=== PATIENT | male | born 1970 | race Caucasian/White ===

== ENCOUNTER 2019-03-21 21:26 | Observation (INO) ==
--- NOTE | 2019-03-21 21:41 | ERNOTE ---
<Nenita Payton - Last Filed: 03/21/19 21:52> Abdominal HPI - Narrative Date of Service: 03/21/19 - General Chief Complaint: Abdominal Pain Time Seen by Provider: 03/21/19 21:40 Source: patient Exam Limitations: no limitations - Immun/Allergies/Home Medications Immunizatons: IMMUNIZATION HX Immunizations Up to Date Yes History of Influenza Vaccine No Hx Pneumococcal Vaccination No Allergies/Adverse Reactions: Allergies No Known Allergies Allergy (Verified 03/21/19 21:32) Home Medications: HOME MEDICATIONS Ondansetron [Zofran Odt] 8 mg PO TID PRN 06/17/14 [Last Taken Unknown] Erythromycin Base [Erythromycin] 250 mg PO TID 11/11/18 [Last Taken Unknown] Albuterol Sulfate [Proair Hfa] 1 - 2 puff INHALATION Q4H PRN #1 inhaler 12/06/18 [Last Taken Unknown] Omeprazole [Prilosec] 20 mg PO DAILY 03/21/19 [Last Taken Unknown] Lisinopril mg PO DAILY 03/22/19 [Last Taken Unknown] - Pain Score Pain Score #1 Pain Score: 8 Abdominal Pain Onset Location: RLQ, LLQ, suprapubic Pain Radiation: no radiation - History of Present Illness Narrative: The patient is a 49 year old male who presents for abdominal pain which has been present since yesterday night. There are associated symptoms of nausea. The patient reports diffuse low abdominal pain, 8/10. There are no alleviating factors. There are aggravating factors of activity. Previous treatments have included: Zofran with slight improvement. The past medical history includes: diverticulitis and gastroparesis. The social history is negative. The patient has had no ill contacts. Patient states symptoms are similar to diverticulitis flare in the past. Patient report normal bowel movement yesterday without changes to pain post defecation, denies blood in stool. Review of Systems - Review of Systems Constitutional: Present: fatigue. Absent: fever EYE: Present: no symptoms reported ENT: Present: no symptoms reported. Absent: ear pain, nasal drainage, sore throat Respiratory: Present: no symptoms reported. Absent: shortness of breath, cough Cardiology: Present: no symptoms reported. Absent: chest pain Gastrointestinal/Abdominal: Present: nausea, abdominal pain. Absent: vomiting, diarrhea Genitourinary: Present: frequency. Absent: dysuria, decreased urinary output Musculoskeletal: Present: no symptoms reported Skin: Present: no symptoms reported Neurological: Present: no symptoms reported All Other Systems: All systems neg except as marked Medical History (Updated 02/22/19 @ 09:36 by Carroll Key MD) Diverticulitis Gastroparesis Kidney stones history of back surgery Surgical History: Surgical History (Updated 07/30/18 @ 03:56 by Antionette Clark) History of repair of left rotator cuff (Acute) History of cholecystectomy Status post right foot surgery Social History: Preferred Language Kosovan Do you have any protestant or No cultural preference? Smoking Status Never smoker Alcohol Use none Drug Use none No Social History Section defined Physical Exam - Physical Exam General Appearance: Present: wd/wn, alert, moderate distress Head Exam: Present: normal inspection Eye Exam: Normal inspection: bilateral Neck: Present: normal inspection Respiratory: Present: no respiratory distress, normal breath sounds, no accessory muscle use, lungs clear Cardiovascular/Chest: Present: no murmur, tachycardia Gastrointestinal/Abdominal: Present: normal bowel sounds, soft, no organomegaly, tenderness - diffuse lower abdomen, distended - abdominal obesity, guarding - suprapubic. Absent: mass Neurological Exam: Present: alert, oriented, normal mood/affect Skin Exam: Present: normal color, warm/dry Progress - Vital Signs Patient's Vital Signs:: I have reviewed the patient's vital signs. Vital Signs: Vital Signs 03/21/19 21:29 Temperature 36.9 C Pulse Rate 107 H Respiratory Rate 18 Blood Pressure 140/92 H O2 Sat by Pulse Oximetry 95 - Progress/Reassessment Chief Complaint: Abdominal Pain - Transfer of Care Physician Sign Out: Nenita Payton Receiving Physician: Augustus Rodriguez Pending Results: CT/MRI results, Labs, X-ray results Expected Disposition: Discharge Departure Clinical Impression: Diverticulitis - Departure Disposition: Still a patient Condition: Fair <Augustus Rodriguez - Last Filed: 03/22/19 05:38> Abdominal HPI - Immun/Allergies/Home Medications Immunizatons: IMMUNIZATION HX Immunizations Up to Date Yes History of Influenza Vaccine No Hx Pneumococcal Vaccination No - History of Present Illness Timing: getting worse Quality: moderate, severe, cramping, sharpness Activities at Onset: none Modifying Factors - (Improves): Present: lying down Modifying Factors - (Worsens): Present: movement Medical History (Updated 03/21/19 @ 21:52 by RADHA Teague) Diverticulitis Gastroparesis Kidney stones history of back surgery Surgical History: Surgical History (Updated 07/30/18 @ 03:56 by Antionette Clark) History of repair of left rotator cuff (Acute) History of cholecystectomy Status post right foot surgery Family History: Family History (Updated 03/22/19 @ 04:35 by Sheron Mills RN) Other No pertinent family history Social History: Preferred Language Kosovan Do you have any protestant or No cultural preference? Smoking Status Never smoker Alcohol Use none Drug Use none No Social History Section defined Physical Exam - Physical Exam General Appearance: Present: wd/wn, alert, mild distress Respiratory: Present: no respiratory distress, no accessory muscle use Gastrointestinal/Abdominal: Present: tenderness - LLQ and suprapubic Neurological Exam: Present: alert, oriented, normal mood/affect Skin Exam: Present: normal color, warm/dry Progress - Results and Orders Patient's Lab Results:: I have reviewed the patient's lab results. Results and Orders: Laboratory Tests 03/21/19 03/21/19 03/21/19 21:55 21:55 22:24 WBC 14.2 H Hgb 15.4 Hct 44.6 Sodium 140 Potassium 3.9 Chloride 104 BUN 17 Creatinine 1.20 Random Glucose 121 H Calcium 9.0 Total Bilirubin 0.5 AST 18 ALT 36 Alkaline Phosphatase 75 C-Reactive Prot, Quant 6.3 H Amylase 82 Lipase 173 Urine Color Yellow Urine Appearance Clear Urine pH 6.0 Ur Specific [place] <=1.005 Urine Protein Negative Urine Glucose (UA) Negative Urine Ketones Negative Urine Blood Negative Urine Nitrate Negative Urine Bilirubin Negative - Vital Signs Vital Signs: Vital Signs 03/21/19 21:29 Temperature 36.9 C Pulse Rate 107 H Respiratory Rate 18 Blood Pressure 140/92 H O2 Sat by Pulse Oximetry 95 - CT/Ultrasound CT/Ultrasound Narrative: CT abdomen pelvis with contrast. Acute diverticulitis of the proximal sigmoid colon with no fluid collections Diffuse hepato-steatosis - Progress/Reassessment Progress:: Improved Progress Note-Subjective: 03/22/19 02:46 I spoke with with Dr. Patino she agrees with admission to observation.
[2019-03-21] MEDS ORDERED: ONDANSETRON HCL/PF 2 MG/ML VIAL IV ONE (21:44)
[2019-03-21] MEDS ORDERED: MORPHINE SULFATE 4 MG/ML SYRG IV ONE ×2 (21:45→22:53)
[2019-03-21 21:57] LABS: Hematocrit 44.6 % (42.0-52.0); Hemoglobin 15.4 gm/dL (13.5-18.0); Mean Cell Volume 87.6 fl (78-100); Mean Corpuscular Hemoglobin 30.3 pg (27-31); Mean Corpuscular Hgb Conc 34.5 g/dl (32-36); Mean Platelet Volume 10.6 fl (8-11.3); Platelet Count 273 K/mm3 (150-450); Red Blood Count 5.09 M/mm3 (4.7-6.0); Red Cell Distribution Width 12.5 % (11.5-14.0); White Blood Count 14.2 K/mm3 (4.0-10.5)
[2019-03-21 22:06] LABS: Total Cells Counted 100
[2019-03-21 22:08] LABS: Basophil 1 % (0-1); Lymphocyte 29 % (20-51); Monocyte 6 % (0-9); Neutrophil 64 % (42-75); Neutrophil # 9.1 K/mm3 (1.3-6.0); Platelet Estimate Normal (NORMAL)
[2019-03-21 22:09] LABS: RBC Morphology Normal (NORMAL)
[2019-03-21 22:11] LABS: Albumin * 3.7 gm/dl (3.4-5.0); Anion Gap 14.7 mmol/L (6.8-13.8); BUN/Creatinine Ratio 14.2 (9.0-21.6); Bilirubin, Total 0.5 mg/dL (0.0-1.1); CRP 6.3 mg/dL (0.0-0.9); Ca. Corrected For Albumin 8.9 mg/dL (8.4-10.2); Carbon Dioxide 25.2 mmol/L (24-32.6); Potassium 3.9 mmol/L (3.4-4.6); Total Protein 7.8 gm/dL (6.2-8.2)
[2019-03-21 22:30] LABS: Urine Bilirubin Negative (NEGATIVE); Urine Blood Negative /ul (NEGATIVE); Urine Ketone Negative (NEGATIVE); Urine Nitrite Negative (NEGATIVE); Urine Protein Negative (NEGATIVE); Urine Specific Gravity <=1.005 SP.GR. (1.005-1.030); Urine Urobilinogen Normal (NORMAL)
[2019-03-21 22:37] LABS: Urine Appearance Clear (CLEAR); Urine Bacteria TRACE; Urine Color Yellow; Urine RBC None Seen /hpf (0-5); Urine WBC None Seen /hpf (0-5)
[2019-03-21] MEDS ORDERED: DIATRIZOATE MEGLUMINE, SODIUM 30 ML BTL PO ONE (22:55)
[2019-03-22] MEDS ORDERED: MORPHINE SULFATE 4 MG/ML SYRG IV ONE ×2 (00:21→02:59)
[2019-03-22] MEDS ORDERED: NORMAL SALINE 1,000 ML IV ONE (03:41)
[2019-03-22] MEDS ORDERED: ONDANSETRON HCL/PF 2 MG/ML VIAL IV ONE (03:51)
[2019-03-22] MEDS: CIPROFLOXACIN IN 5 % DEXTROSE 400 MG/200 ML BAG IV SCH ×2 (04:01→15:43)
[2019-03-22] MEDS: metroNIDAZOLE/SODIUM CHLORIDE 500 MG/100 ML BAG IV SCH ×3 (05:30→19:27)
--- NOTE | 2019-03-22 10:45 | HP ---
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 Symptoms began 2 days ago and progressively worsened. Last bowel movement was yesterday. Denies fever or chills. In the emergency department he was found to have leukocytosis and CT scan of the abdomen and pelvis that showed mild diverticulitis involving the proximal sigmoid colon without drainable fluid collection, mild scattered diverticulosis involving descending colon and sigmoid colon. He was admitted for further evaluation and management. Medical History (Updated 03/22/19 @ 11:10 by Rashida Palmer MD) Diverticulitis Gastroparesis Kidney stones history of back surgery Surgical History: Surgical History (Updated 07/30/18 @ 03:56 by Antionette Clark) History of repair of left rotator cuff (Acute) History of cholecystectomy Status post right foot surgery Family History: Family History (Updated 03/22/19 @ 04:35 by Sheron Mills RN) Other No pertinent family history Social History: Patient Lives/Resources With Spouse Utilized Preferred Language Mongolian Do you have any sikh or No cultural preference? Smoking Status Never smoker Have you smoked in the past 12 No months Alcohol Use none Drug Use none No Social History Section defined Review Of Systems (GEN) - Review of Systems Generalized/Overall Review: Absent: Chills, Fever EENTM: Absent: Eye Pain Respiratory: Absent: Shortness of Breath Cardiac: Absent: Chest Pain Abdominal: Present: Nausea, Abdominal Pain. Absent: Vomiting, Constipation Musculoskeletal: Absent: Joint Pain, Back Pain Misc: All systems neg except as marked Immunizations: IMMUNIZATION HX Immunizations Up to Date Yes History of Influenza Vaccine No Hx Pneumococcal Vaccination No Allergies/Adverse Reactions: Allergies Allergy/AdvReac Type Severity Reaction Status Date / Time No Known Allergies Allergy Verified 03/21/19 21:32 Home Medications: HOME MEDICATIONS Ondansetron [Zofran Odt] 8 mg PO TID PRN 06/17/14 [Last Taken Unknown] Erythromycin Base [Erythromycin] 250 mg PO TID 11/11/18 [Last Taken Unknown] Albuterol Sulfate [Proair Hfa] 1 - 2 puff INHALATION Q4H PRN #1 inhaler 12/06/18 [Last Taken Unknown] Omeprazole [Prilosec] 20 mg PO DAILY 03/21/19 [Last Taken Unknown] Lisinopril 20 mg PO DAILY 03/22/19 [Last Taken Unknown] Exam - Exam Vital Signs: Vital Signs - Last Taken Temp 36.4 C 03/22/19 06:31 Pulse 90 03/22/19 06:31 Resp 18 03/22/19 06:31 BP 115/73 03/22/19 06:31 Pulse Ox 96 03/22/19 06:31 Constitutional: Present: Alert, Cooperative, Well developed, Well nourished, No distress ENT Exam: Present: hearing grossly normal, moist mucous membranes Eye Exam: bilateral eye: normal inspection, EOMI Neck: Present: supple, trachea midline. Absent: lymphadenopathy (R), lymphadenopathy (L) Back Exam: Present: normal inspection, no CVA tenderness, no vertebral tenderness Respiratory: Present: lungs clear, no respiratory distress, no accessory muscle use, No wheezing. Absent: crackles, rhonchi Cardiovascular/Chest: Present: normal peripheral pulses, regular rate, rhythm, no edema, no murmur Peripheral Pulses: dorsalis-pedis (R): 2+, dorsalis-pedis (L): 2+ Abdomen: Present: Normal bowel sounds, soft, tender - Suprapubic and left lower quadrant regions. Absent: guarding, rigidity Extremity: Present: no pedal edema Skin Exam: Present: normal color, warm/dry Neurologic: Present: alert, normal mood/affect Appearance: Present: appropriate appearance, appropriate insight Eye contact: Present: cooperative, good eye contact Thoughts: Present: normal thought pattern, normal mood /affect Diagnostic Studies: Abnormal Lab Results 03/21/19 03/21/19 Range/Units 21:55 21:55 WBC 14.2 H (4.0-10.5) K/mm3 Neutrophils # (Manual) 9.1 H (1.3-6.0) K/mm3 Lymphocytes # (Manual) 4.1 H (1.5-3.5) k/mm3 Anion Gap 14.7 H (6.8-13.8) mmol/L Random Glucose 121 H (70-110) mg/dL C-Reactive Prot, Quant 6.3 H (0.0-0.9) mg/dL Laboratory Results WBC 14.2 K/mm3 (4.0-10.5) H 03/21/19 21:55 RBC 5.09 M/mm3 (4.7-6.0) 03/21/19 21:55 Hgb 15.4 gm/dL (13.5-18.0) 03/21/19 21:55 Hct 44.6 % (42.0-52.0) 03/21/19 21:55 MCV 87.6 fl (78-100) 03/21/19 21:55 MCH 30.3 pg (27-31) 03/21/19 21:55 MCHC 34.5 g/dl (32-36) 03/21/19 21:55 RDW 12.5 % (11.5-14.0) 03/21/19 21:55 Plt Count 273 K/mm3 (150-450) 03/21/19 21:55 MPV 10.6 fl (8-11.3) 03/21/19 21:55 64 % (42-75) 03/21/19 21:55 29 % (20-51) 03/21/19 21:55 6 % (0-9) 03/21/19 21:55 1 % (0-1) 03/21/19 21:55 9.1 K/mm3 (1.3-6.0) H 03/21/19 21:55 4.1 k/mm3 (1.5-3.5) H 03/21/19 21:55 0.9 k/mm3 (0.0-1.0) 03/21/19 21:55 0.1 k/mm3 (0.0-0.1) 03/21/19 21:55 Normal (NORMAL) 03/21/19 21:55 RBC Morphology Normal (NORMAL) 03/21/19 21:55 Sodium 140 mmol/L (132-142) 03/21/19 21:55 140 mmol/L (130-142) 03/21/19 21:55 Potassium 3.9 mmol/L (3.4-4.6) 03/21/19 21:55 Chloride 104 mmol/L (97-106) 03/21/19 21:55 Carbon Dioxide 25.2 mmol/L (24-32.6) 03/21/19 21:55 14.7 mmol/L (6.8-13.8) H 03/21/19 21:55 BUN 17 mg/dL (6-23) 03/21/19 21:55 1.20 mg/dL (0.4-1.4) 03/21/19 21:55 Est GFR (Non-Af Amer) 68 mL/min (60-130) 03/21/19 21:55 14.2 (9.0-21.6) 03/21/19 21:55 121 mg/dL (70-110) H 03/21/19 21:55 Calcium 9.0 mg/dL (7.9-10.9) 03/21/19 21:55 Calcium Adj for Albumin 8.9 mg/dL (8.4-10.2) 03/21/19 21:55 0.5 mg/dL (0.0-1.1) 03/21/19 21:55 AST 18 U/L (0-48) 03/21/19 21:55 ALT 36 U/L (19-67) 03/21/19 21:55 75 U/L (50-170) 03/21/19 21:55 C-Reactive Prot, Quant 6.3 mg/dL (0.0-0.9) H 03/21/19 21:55 7.8 gm/dL (6.2-8.2) 03/21/19 21:55 3.7 gm/dl (3.4-5.0) 03/21/19 21:55 Amylase 82 U/L (25-115) 03/21/19 21:55 173 U/L (73-393) 03/21/19 21:55 Yellow 03/21/19 22:24 Clear (CLEAR) 03/21/19 22:24 6.0 pH (5.0-7.0) 03/21/19 22:24 Ur Specific [place] <=1.005 SP.GR. (1.005-1.030) 03/21/19 22:24 Negative mg/dL (NEGATIVE) 03/21/19 22:24 Negative mg/dL (NEGATIVE) 03/21/19 22:24 Negative mg/dL (NEGATIVE) 03/21/19 22:24 Negative /ul (NEGATIVE) 03/21/19 22:24 Negative (NEGATIVE) 03/21/19 22:24 Negative mg/dl (NEGATIVE) 03/21/19 22:24 Normal EU/dl (NORMAL) 03/21/19 22:24 Ur Leukocyte Esterase Negative /ul (NEGATIVE) 03/21/19 22:24 None seen /hpf (0-5) 03/21/19 22:24 None seen /hpf (0-5) 03/21/19 22:24 Ur Epithelial Cells None seen /hpf (0-5) 03/21/19 22:24 Trace (NONE) 03/21/19 22:24 No culture indicated 03/21/19 22:24 Assessment/Plan - Narrative Narrative: 49-year-old male with a past medical history of 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 Symptoms began 2 days ago and progressively worsened. In the emergency department he was found to have leukocytosis and CT scan of the abdomen and pelvis that showed mild diverticulitis involving the proximal sigmoid colon without drainable fluid collection, mild scattered diverticulosis involving descending colon and sigmoid colon. He was admitted for further evaluation and management. - Assessment/Plan (1) Diverticulitis of sigmoid colon Assessment: CT abdomen pelvis shows gastroparesis of the sigmoid colon. Continue with Cipro and Flagyl. Advance diet as tolerated. Will try a clear liquid diet this after noon. Pain tolerable at this time. Problem: Acute (2) Gastroparesis Assessment: Secondary to damage to his vagus nerve. He is nauseous but not vomiting. Continue Zofran via IV and transition to oral once nausea is controlled. Restart his erythromycin once tolerating oral intake. Problem: Chronic (3) HTN (hypertension) Assessment: Blood pressure well controlled. Once tolerating oral intake will restart his lisinopril. Problem: Chronic Qualifiers: Hypertension type: essential hypertension Qualified Code(s): I10 - Essential (primary) hypertension
[2019-03-22] MEDS ORDERED: ALBUTEROL SULFATE 2.5 MG/0.5 ML VIAL.NEB IH PRN (10:48)
[2019-03-22] MEDS ORDERED: metroNIDAZOLE/SODIUM CHLORIDE 500 MG/100 ML BAG IV SCH (11:00)
[2019-03-22] MEDS ORDERED: CIPROFLOXACIN IN 5 % DEXTROSE 400 MG/200 ML BAG IV SCH (11:00)
[2019-03-22] MEDS: ONDANSETRON HCL/PF 2 MG/ML VIAL IV PRN ×2 (11:24→17:24)
[2019-03-22] MEDS: ERYTHROMYCIN BASE 250 MG PO SCH ×2 (12:26→17:23)
[2019-03-22] MEDS: IBUPROFEN 400 MG TABLET PO PRN ×2 (13:25→19:26)
[2019-03-23] MEDS: metroNIDAZOLE/SODIUM CHLORIDE 500 MG/100 ML BAG IV SCH ×2 (03:25→11:15)
[2019-03-23] MEDS: CIPROFLOXACIN IN 5 % DEXTROSE 400 MG/200 ML BAG IV SCH (04:31)
[2019-03-23 05:51] LABS: Hematocrit 43.5 % (42.0-52.0); Hemoglobin 14.6 gm/dL (13.5-18.0); Mean Cell Volume 90.6 fl (78-100); Mean Corpuscular Hemoglobin 30.4 pg (27-31); Mean Corpuscular Hgb Conc 33.6 g/dl (32-36); Mean Platelet Volume 10.8 fl (8-11.3); Neutrophil % 63.1 % (42-75.0); Platelet Count 232 K/mm3 (150-450); Red Cell Distribution Width 12.6 % (11.5-14.0); White Blood Count 9.5 K/mm3 (4.0-10.5)
[2019-03-23 05:53] LABS: Albumin * 3.2 gm/dl (3.4-5.0); Anion Gap 12.4 mmol/L (6.8-13.8); BUN/Creatinine Ratio 11.5 (9.0-21.6); Bilirubin, Total 0.6 mg/dL (0.0-1.1); Calcium * 8.7 mg/dL (7.9-10.9); Carbon Dioxide 26.7 mmol/L (24-32.6); Potassium 4.1 mmol/L (3.4-4.6); Total Protein 7.2 gm/dL (6.2-8.2)
[2019-03-23] MEDS ORDERED: PANTOPRAZOLE SODIUM 20 MG TABLET.DR PO SCH (07:00)
[2019-03-23] MEDS ORDERED: LISINOPRIL 20 MG TABLET PO SCH (09:00)
[2019-03-23] MEDS: ERYTHROMYCIN BASE 250 MG PO SCH (09:25)
--- NOTE | 2019-03-23 11:27 | DS ---
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 Symptoms began 2 days ago and progressively worsened. In the emergency department he was found to have leukocytosis and CT scan of the abdomen and pelvis that showed mild diverticulitis involving the proximal sigmoid colon without drainable fluid collection, mild scattered diverticulosis involving descending colon and sigmoid colon. He was admitted for further evaluation and management. His abdominal pain has improved significantly. He is tolerating an oral diet and is stable for discharge home today. He will be sent home on ciprofloxacin and Flagyl for a total of 10 days. Procedures Performed: none Results and Findings: Lab Pending Results 03/21/19 21:55: WBC 14.2 H, RBC 5.09, Hgb 15.4, Hct 44.6, MCV 87.6, MCH 30.3, MCHC 34.5, RDW 12.5, Plt Count 273, MPV 10.6, Neutrophils % (Manual) 64, Lymphocytes % (Manual) 29, Monocytes % (Manual) 6, Basophils % (Manual) 1, Neutrophils # (Manual) 9.1 H, Lymphocytes # (Manual) 4.1 H, Monocytes # (Manual) 0.9, Basophils # (Manual) 0.1, Platelet Estimate Normal, RBC Morphology Normal 03/21/19 21:55: Sodium 140, Plasma Sodium 140, Potassium 3.9, Chloride 104, Carbon Dioxide 25.2, Anion Gap 14.7 H, BUN 17, Creatinine 1.20, Est GFR (Non-Af Amer) 68, BUN/Creatinine Ratio 14.2, Random Glucose 121 H, Calcium 9.0, Calcium Adj for Albumin 8.9, Total Bilirubin 0.5, AST 18, ALT 36, Alkaline Phosphatase 75, C-Reactive Prot, Quant 6.3 H, Total Protein 7.8, Albumin 3.7, Amylase 82, Lipase 173 03/21/19 22:24: Urine Color Yellow, Urine Appearance Clear, Urine pH 6.0, Ur Specific [place] <=1.005, Urine Protein Negative, Urine Glucose (UA) Negative, Urine Ketones Negative, Urine Blood Negative, Urine Nitrate Negative, Urine Bilirubin Negative, Urine Urobilinogen Normal, Ur Leukocyte Esterase Negative, Urine RBC None seen, Urine WBC None seen, Ur Epithelial Cells None seen, Urine Bacteria Trace, Urine Culture Comments No culture indicated 03/23/19 05:35: WBC 9.5 D, RBC 4.80, Hgb 14.6, Hct 43.5, MCV 90.6, MCH 30.4, MCHC 33.6, RDW 12.6, Plt Count 232, MPV 10.8, Immature Gran % (Auto) 0.70 H, Immature Gran # (Auto) 0.07 H, Neutrophils % 63.1, Lymphocytes % 22.6, Monocytes % 9.2 H, Eosinophils % 3.7 H, Basophils % 0.7, Nucleated RBC % 0.0, Neutrophils # 6.0, Lymphocytes # 2.14, Monocytes # 0.9, Eosinophils # 0.4, Absolute Basophils 0.1 03/23/19 05:35: Sodium 141, Plasma Sodium 142, Potassium 4.1, Chloride 106, Carbon Dioxide 26.7, Anion Gap 12.4, BUN 13, Creatinine 1.13, Est GFR (Non-Af Amer) 73, BUN/Creatinine Ratio 11.5, Random Glucose 137 H, Calcium 8.7, Calcium Adj for Albumin 9.0, Total Bilirubin 0.6, AST 19, ALT 31, Alkaline Phosphatase 59, Total Protein 7.2, Albumin 3.2 L Discharge Location: Home Disposition: Home self-care Condition: Good Discharge Activity: Activity as tolerated Discharge Diet: Low salt Referrals: Abby Tompkins PAC [Primary Care Provider] - Additional Patient Instructions (free text): -Please make TCM appointment unless senior care discharge, or if following up with outside provider. Thank you! Yadira @ [phone] or Lorena at [facility] [phone]. Prescriptions (Any new or edited meds): Ciprofloxacin HCl [Cipro] 500 mg PO BID #18 tab metroNIDAZOLE [Flagyl] 500 mg PO Q8H #27 tab Complete Home Medications List: Complete Home Medication List: Ondansetron [Zofran Odt] 8 mg PO TID PRN 06/17/14 Erythromycin Base [Erythromycin] 250 mg PO TID 11/11/18 Albuterol Sulfate [Proair Hfa] 1 - 2 puff INHALATION Q4H PRN #1 inhaler 12/06/18 Omeprazole [Prilosec] 20 mg PO DAILY 03/21/19 Lisinopril 20 mg PO DAILY 03/22/19 Ciprofloxacin HCl [Cipro] 500 mg PO BID #18 tab 03/23/19 metroNIDAZOLE [Flagyl] 500 mg PO Q8H #27 tab 03/23/19
[2019-03-23 12:55] VITALS: BP 135/81
== END 2019-03-23 13:00 | disposition home or self-care (01) ==
LOC: ER 21:26 → MS 21:26
PROVIDERS: ADMIT Internal Medicine; ATTEND Internal Medicine
CPT/HCPCS: 36415; 74019; 74020; 74177; 80053; 81001; 82150; 83690; 85025; 86140; 96361; 96365; 96366; 96367; 96375; 99285; G0378; J2405; Q9967